=== PATIENT | female | born 1955 | race Caucasian/White ===

== ENCOUNTER 2017-01-02 16:22 | Emergency (ER) | payer BC ==
[~2017-01-02] VITALS: Ht 160 cm; Wt 88.0 kg
[2017-01-02 16:25] VITALS: BP 226/108; PULSE 86; RESP 16; TEMP 98.5; O2SAT 99
[2017-01-02 16:34] VITALS: BP 211/94
--- NOTE | 2017-01-02 16:35 | PD ---
Physical Exam Time Seen by Provider: 16:33 Narrative 61 y/o female with hx of htn presents for evaluation of htn, ran out of her htn medications 3 weeks ago. She has a mild headache. Sent from urgent care. Vital signs reviewed. Seen at triage desk. Awaiting bed placement. Data Data Last Documented VS Vital Signs Date Time Temp Pulse Resp B/P Pulse Ox O2 Delivery O2 Flow Rate FiO2 01/02/17 16:25 98.5 86 16 226/108 99 MDM Medical Record Reviewed: Yes Supervised Visit with MAI: Hammad Santoro January 02, 2017 16:35
[2017-01-02] MEDS ORDERED: LISI10TA3 PO (17:58)
--- NOTE | 2017-01-02 17:59 | PD ---
HPI Chief Complaint: Hypertension Time Seen by Provider: 17:51 Travel History International Travel<30 days: No Contact w/Intl Traveler<30days: No Traveled to known affect area: No History of Present Illness HPI 61-year-old female complains of over the blood pressure. Patient states that she has history hypertension and ran out of blood pressure medication 3 weeks ago. Patient was on lisinopril 10 mg daily. Patient states that she has mild aching headache. Patient denies any visual change. Patient denies any neck pain. Patient denies any chest pain or shortness of breath. Patient denies abdominal pain. Patient denies any focal weakness or numbness of the ceramic the. PFSH Past Medical History Cardiovascular Problems: Yes (HTN) ?: Not Social History Tobacco Use: No Allergies-Medications (Allergen,Severity, Reaction): Coded Allergies: No Known Allergies (Verified Allergy, Mild, 05/18/03) Reported Meds & Prescriptions Reported Meds & Active Scripts Active Lisinopril 10 Mg Tab 10 Mg PO DAILY Review of Systems General / Constitutional: No: Fever Eyes: No: Visual changes HENT: Positive: Headaches (headache and everything else is) Cardiovascular: No: Chest Pain or Discomfort Respiratory: No: Shortness of Breath Gastrointestinal: No: Abdominal Pain Genitourinary: No: Dysuria Musculoskeletal: No: Pain Skin: No Rash Neurologic: No: Weakness Psychiatric: No: Depression Endocrine: No: Polydipsia Hematologic/Lymphatic: No: Easy Bruising Physical Exam Narrative GENERAL: Well-nourished, well-developed patient. SKIN: Focused skin assessment warm/dry. HEAD: Normocephalic. EYES: No scleral icterus. No injection or drainage. NECK: Supple, trachea midline. No JVD or lymphadenopathy. CARDIOVASCULAR: Regular rate and rhythm without murmurs, gallops, or rubs. RESPIRATORY: Breath sounds equal bilaterally. No accessory muscle use. GASTROINTESTINAL: Abdomen soft, non-tender, nondistended. MUSCULOSKELETAL: No cyanosis, or edema. BACK: Nontender without obvious deformity. No CVA tenderness. Neurologic exam normal. Data Data Last Documented VS Vital Signs Date Time Temp Pulse Resp B/P Pulse Ox O2 Delivery O2 Flow Rate FiO2 01/02/17 18:37 74 16 194/91 98 Room Air 01/02/17 16:25 98.5 Orders Clonidine (Catapres) (01/02/17 18:00) [facility] Medical Decision Making Medical Screen Exam Complete: Yes Emergency Medical Condition: Yes Differential Diagnosis Differential diagnosis including uncontrolled hypertension, hypertensive urgency , hypertensive crisis. Narrative Course 61-year-old female with mild aching headache and elevated blood pressure. History hypertension and ran out of her blood pressure medication 3 weeks ago. Clonidine 0.2 mg by mouth given. 1838 PM. Blood pressure came under more control. Diagnosis Primary Impression: Uncontrolled hypertension Patient Instructions: General Instructions Additional Instructions: Take lisinopril as directed. Check blood pressure daily. Follow-up with personal physician. Return if worse. Med/Other Pt SpecificInfo: Prescription(s) given Scripts Lisinopril 10 Mg Tab10 Mg PO DAILY #30 TAB Ref 0 Prov:Abundio Call MD 01/02/17 Disposition: 01 DISCHARGE HOME Condition: Stable Abundio Call MD January 02, 2017 17:58
[2017-01-02] MEDS ORDERED: cloNIDine HCL 0.2 MG TAB PO ONE (18:00)
[2017-01-02 18:04] VITALS: BP 97/53; PULSE 79; RESP 14; O2SAT 98
[2017-01-02 18:37] VITALS: BP 194/91; PULSE 74; RESP 16; O2SAT 98
== END 2017-01-02 18:53 | disposition home or self-care (01) ==
LOC: NEPC 16:22
DX: I10 Essential (primary) hypertension (principal); R51 Headache; Z86.79 Personal history of other diseases of the circulatory system
CPT/HCPCS: 99283